=== PATIENT | female | born 1975 | race Caucasian/White ===

== ENCOUNTER 2016-09-07 14:30 | Emergency (ER) | payer SELFPAY ==
[2016-09-07 16:16] VITALS: BP 120/55; PULSE 71; TEMP 97.5; BMI 27.4
--- NOTE | 2016-09-07 16:31 | PDOC ---
History of Present Illness - General Chief Complaint: Rash Stated Complaint: RASH Time Seen by Provider: 09/07/16 16:29 History Source: Patient Exam Limitations: No Limitations - History of Present Illness Initial Comments: 09/07/16 16:41 41-year-old female with no past medical history presents to the emergency department complaining of a rash to her mid chest and right arm since last night. Patient denies eating new food or using a different detergent. Patient thinks she brushed up against something at work/supermarket. Patient denies any headache, dizziness, nausea/vomiting, fever/chills, chest pain, shortness of breath, abdominal pains. Timing/Duration: 24 hours Severity: mild Associated Symptoms: reports: rash. denies: chest pain, cough, fever/chills, shortness of breath Past History - Past Medical History Allergies/Adverse Reactions: Allergies Allergy/AdvReac Type Severity Reaction Status Date / Time No Known Allergies Allergy Verified 09/07/16 16:16 Home Medications: Ambulatory Orders Multivitamin with Iron [Daily Vitamin + Iron] 1 each PO 02/17/12 Ondansetron [Zofran] 4 mg PO TID #14 tablet 02/17/12 Methylprednisolone [Medrol Dose Jose] 4 mg PO ASDIR #21 tablet 09/07/16 Suicide Attempt (Hx): No Other medical history: denies - Surgical History Appendectomy: Yes - Psycho/Social/Smoking Cessation Hx Anxiety: No Suicidal Ideation: No Smoking Status: No Smoking History: Never smoked Number of Cigarettes Smoked Daily: 0 Information on smoking cessation initiated: No Hx Alcohol Use: No Drug/Substance Use Hx: No Substance Use Type: None Review of Systems - Review of Systems Able to Perform ROS?: Yes Comments:: 09/07/16 16:30 CONSTITUTIONAL: Absent: fever, chills, diaphoresis, generalized weakness, malaise, loss of appetite HEENT: Absent: rhinorrhea, nasal congestion, throat pain, throat swelling, difficulty swallowing, mouth swelling, ear pain, eye pain, visual Changes CARDIOVASCULAR: Absent: chest pain, loss of consciousness, palpitations, irregular heart rate, peripheral edema RESPIRATORY: Absent: cough, shortness of breath, dyspnea with exertion, orthopnea, wheezing, stridor, hemoptysis GASTROINTESTINAL: Absent: abdominal pain, abdominal distension, nausea, vomiting, diarrhea, constipation, melena, hematochezia GENITOURINARY: Absent: dysuria, frequency, urgency, hesitancy, hematuria, flank pain, genital pain MUSCULOSKELETAL: Absent: myalgia, arthralgia, joint swelling SKIN: Urticaria to right arm/mid chest Absent: pallor HEMATOLOGIC/IMMUNOLOGIC: Absent: easy bleeding, easy bruising, lymphadenopathy, frequent infections ENDOCRINE: Absent: unexplained weight gain, unexplained weight loss, heat intolerance, cold intolerance NEUROLOGIC: Absent: headache, focal weakness or paresthesias, dizziness, unsteady gait, seizure, mental status changes, bladder or bowel incontinence PSYCHIATRIC: Absent: anxiety, depression, suicidal or homicidal ideation, hallucinations. Is the patient limited Pakistani proficient: No *Physical Exam - Vital Signs Last Vital Signs Temp Pulse Resp BP Pulse Ox 97.5 F L 71 18 120/55 100 09/07/16 16:14 09/07/16 16:14 09/07/16 16:14 09/07/16 16:14 09/07/16 16:14 - Physical Exam Comments: 09/07/16 16:39 GENERAL: Well developed, well nourished. Awake and alert. No acute distress. HEENT: Normocephalic, atraumatic. PERRLA, EOMI. No conjunctival pallor. Sclera are non- icteric. Moist mucous membranes. Oropharynx is clear. NECK: Supple. Full ROM. No JVD. Carotid pulses 2+ and symmetric, without bruits. No thyromegaly. No lymphadenopathy. CARDIOVASCULAR: Regular rate and rhythm. No murmurs, rubs, or gallops. Distal pulses are 2+ and symmetric. PULMONARY: No evidence of respiratory distress. Lungs clear to auscultation bilaterally. No wheezing, rales or rhonchi. ABDOMINAL: Soft. Non-tender. Non-distended. No rebound or guarding. No organomegaly. Normoactive bowel sounds. MUSCULOSKELETAL Normal range of motion at all joints. No bony deformities or tenderness. No CVA tenderness. EXTREMITIES: No cyanosis. No clubbing. No edema. No calf tenderness. SKIN: Urticaria to right arm and mid chest Warm and dry. Normal capillary refill. No jaundice. NEUROLOGICAL: Alert, awake, appropriate. Cranial nerves 2-12 intact. No deficits to light touch and temperature in face, upper extremities and lower extremities. No motor deficits in the in face, upper extremities and lower extremities. Normoreflexic in the upper and lower extremities. Normal speech. Toes are down- going bilaterally. Gait is normal without ataxia. PSYCHIATRIC: Cooperative. Good eye contact. Appropriate mood and affect. *DC/Admit/Observation/Transfer Diagnosis at time of Disposition: Rash - Discharge Dispostion Disposition: HOME Condition at time of disposition: Stable Admit: No - Prescriptions Prescriptions: Methylprednisolone [Medrol Dose Jose] 4 mg PO ASDIR #21 tablet - Referrals Referrals: Mary La MD [Primary Care Provider] - - Patient Instructions Printed Discharge Instructions: DI for Rash Additional Instructions: Increase fluids Take Zyrtec in the morning for itch Take benadryl 50mg at night for itch Take the medrol dose pack as prescribed Return to the ER for severe/persistent/worsening symptoms
[2016-09-07] MEDS ORDERED: diphenhydrAMINE HCL 50 MG CAPSULE PO ONE (16:33)
[2016-09-07] MEDS ORDERED: predniSONE 20 MG TABLET (UD) PO ONE (16:34)
[2016-09-07] MEDS ORDERED: predniSONE 20 MG TABLET (UD) ONE (16:35)
[2016-09-07] MEDS ORDERED: diphenhydrAMINE HCL 25 MG CAPSULE (FP) PO ONE (16:36)
== END 2016-09-07 16:39 | disposition home or self-care (01) ==
LOC: JER 14:30 → JERFT 14:30 → JER 16:39
DX: L50.9 Urticaria, unspecified (principal)
CPT/HCPCS: 99281-25

== ENCOUNTER 2021-12-07 06:10 | Emergency (ER) | payer OTHER ==
[2021-12-07 06:16] VITALS: BP 112/65; PULSE 72; RESP 18; TEMP 97.9; BMI 28.4
[2021-12-07] MEDS ORDERED: IBUPROFEN 600 MG TABLET (FP) PO ONE ×2 (07:21→07:39)
== END 2021-12-07 09:19 | disposition home or self-care (01) ==
LOC: JER 06:10
DX: M25.562 Pain in left knee (principal)
CPT/HCPCS: 73562-TC-LT-FY; 99283-25